=== PATIENT | female | born 2000 | race Caucasian/White ===

== ENCOUNTER 2024-12-22 16:14 | Emergency (ER) | payer OTHER ==
[~2024-12-22] VITALS: Ht 167.6 cm; Wt 77.0 kg
[2024-12-22 16:16] VITALS: PULSE 75; O2SAT 98
[2024-12-22 16:22] VITALS: BP 125/57; RESP 16; TEMP 36.9; O2SAT 99
[2024-12-22] MEDS: ACETAMINOPHEN 325MG TABLET PO ONE (18:15)
[2024-12-22] MEDS: BACITRACIN ZINC OINT UDPKT TOP ONE (18:15)
[2024-12-22] MEDS ORDERED: AMOX1TAB16 PO (18:28)
[2024-12-22] MEDS ORDERED: ACET-2708 MT (18:28)
== END 2024-12-22 18:37 | disposition home or self-care (01) ==
LOC: ER 16:14
DX: S61.255A Open bite of left ring finger without damage to nail, initial encounter (principal); S61.452A Open bite of left hand, initial encounter; W54.0XXA Bitten by dog, initial encounter; Y93.9 Activity, unspecified; Y92.89 Other specified places as the place of occurrence of the external cause; Y99.8 Other external cause status
CPT/HCPCS: 73130; 99283